=== PATIENT | female | born 1970 | race Caucasian/White ===

== ENCOUNTER 2016-03-21 14:24 | Emergency (ER) | payer OTHER ==
[~2016-03-21] VITALS: Ht 165.1 cm; Wt 77.1 kg
[2016-03-21] MEDS ORDERED: TETRACAINE HCL/PF 0.5% UD 2 ML BOTTLE ONE (14:54)
[2016-03-21] MEDS ORDERED: FLUORESCEIN SODIUM OPHTH 1 EA STRIP ONE (14:54)
[2016-03-21] MEDS ORDERED: TETRACAINE HCL 0.5% OPHTALMIC 15 ML BOTTLE OP ONE (15:00)
[2016-03-21] MEDS ORDERED: FLUORESCEIN SODIUM OPHTH 1 EA STRIP OP ONE (15:00)
[2016-03-21 15:20] VITALS: BP 107/71
== END 2016-03-21 15:34 | disposition home or self-care (01) ==
LOC: ER 15:15
DX: S05.02XA Injury of conjunctiva and corneal abrasion without foreign body, left eye, initial encounter (principal); X08.8XXA Exposure to other specified smoke, fire and flames, initial encounter; Y93.89 Activity, other specified; Y92.89 Other specified places as the place of occurrence of the external cause; Y99.8 Other external cause status
CPT/HCPCS: 99283; A4606; Z7610